=== PATIENT | female | born 1960 | race African-American/Black ===

== ENCOUNTER 2018-08-19 17:46 | Emergency (ER) | payer OTHER ==
[~2018-08-19] VITALS: Ht 162.6 cm; Wt 50.0 kg
[2018-08-19] MEDS ORDERED: IBUPROFEN 600MG TABLET PO ONE (18:45)
[2018-08-19 18:52] VITALS: BP 116/92
== END 2018-08-19 21:25 | disposition home or self-care (01) ==
LOC: ER 17:46
DX: M54.5 Low back pain (principal); V49.49XA Driver injured in collision with other motor vehicles in traffic accident, initial encounter; Y93.89 Activity, other specified; Y92.89 Other specified places as the place of occurrence of the external cause; Y99.8 Other external cause status
CPT/HCPCS: 72100; 99284